=== PATIENT | male | born 1945 | race Caucasian/White ===

== ENCOUNTER 2017-11-24 21:41 | Emergency (ER) | payer MEDICARE, BC ==
[~2017-11-24] VITALS: Ht 190.5 cm; Wt 115.0 kg
[~2017-11-24 21:41] MED LIST: FLO0.4C PO; LEVO100T9 PO; METO-411 PO
[2017-11-24 21:45] VITALS: BP 103/73
[2017-11-24] MEDS ORDERED: TETanus/Pertussis (Acell)/Diphther VAC/PF (Tdap-Adult) 0.5ml syringe IM ONE (23:40)
[2017-11-24] MEDS ORDERED: LIDOcaine 1.5% w/epinephrine 1:200,000 5ml ampul IJ ONE (23:40)
== END 2017-11-25 00:03 | disposition home or self-care (01) ==
LOC: ER 21:42
DX: S91.311A Laceration without foreign body, right foot, initial encounter (principal); Z79.2 Long term (current) use of antibiotics; Z79.899 Other long term (current) drug therapy; W26.0XXA Contact with knife, initial encounter; Y93.89 Activity, other specified; Y92.89 Other specified places as the place of occurrence of the external cause; Y99.8 Other external cause status
CPT/HCPCS: 12001; 90471; 90715; 99283; A6222